=== PATIENT | female | born 1985 | race Caucasian/White ===

== ENCOUNTER 2016-11-18 10:16 | Emergency (ER) | payer BC ==
[2016-11-18 10:43] VITALS: BP 116/70
[2016-11-18] MEDS ORDERED: Benzonatate CAP* 100 MG PO ONE (12:02)
--- NOTE | 2016-11-18 12:04 | UC ---
Throat Pain/Nasal Carlos A HPI - HPI Summary HPI Summary: patient has had a cough, fever, chills and very sore throat for 3 days. - History of Current Complaint Chief Complaint: UCGeneralIllness Stated Complaint: COUGH,THROAT Time Seen by Provider: 11/18/16 11:55 Hx Obtained From: Patient Hx Last Menstrual Period: 10/29/16 ?: No Onset/Duration: Sudden Onset, Lasting Days Severity: Moderate Pain Intensity: 6 Pain Scale Used: 0-10 Numeric Cough: Nonproductive Associated Signs & Symptoms: Positive: Dysphagia, Hoarseness, Fever - Epiglottits Risk Factors Epiglottis Risk Factors: Negative - Allergies/Home Medications Allergies/Adverse Reactions: Allergies Allergy/AdvReac Type Severity Reaction Status Date / Time Codeine Allergy Severe Vomiting Verified 09/09/16 08:31 Hydrocodone [From Vicodin] Allergy Severe Vomiting Verified 09/09/16 08:31 Vancomycin Allergy Intermediate Rash Verified 09/09/16 08:31 Sulfamethoxazole Allergy Rash Verified 09/09/16 08:31 w/Trimethoprim [From Bactrim] PMH/Surg Hx/FS Hx/Imm Hx Previously Healthy: Yes Endocrine History Of: Denies: Diabetes Cardiovascular History Of: Denies: Cardiac Disorders Respiratory History Of: Reports: Asthma GI/ History Of: Denies: Ulcer Neurological History Of: Denies: CVA Cancer History Of: Denies: Colorectal Cancer - Surgical History Surgical History: Yes Surgery Procedure, Year, and Place: 7 knee surgery, 6 on right, 1 on left. C- section, 2011, [place]. Three Herniorrhaphies. Cholecystectomy, 2013, [place]. APPENDECTOMY AUG 2016, [facility] - Family History Known Family History: Negative: Hypertension - Social History Alcohol Use: Occasionally Substance Use Type: None Smoking Status (MU): Never Smoked Tobacco Review of Systems Constitutional: Fever, Chills Skin: Negative Eyes: Negative ENT: Negative Respiratory: Shortness Of Breath, Cough Cardiovascular: Negative Gastrointestinal: Negative Genitourinary: Negative Motor: Negative Neurovascular: Negative Musculoskeletal: Negative Neurological: Headache Psychological: Negative All Other Systems Reviewed And Are Negative: Yes Physical Exam Triage Information Reviewed: Yes Appearance: Well-Nourished, Ill-Appearing, Pain Distress Vital Signs: Initial Vital Signs Temp 99.8 F 11/18/16 10:37 Pulse 66 11/18/16 10:37 Resp 16 11/18/16 10:37 BP 116/70 11/18/16 10:37 Pulse Ox 100 11/18/16 10:37 Vital Signs Reviewed: Yes Eye Exam: Normal Eyes: Positive: Conjunctiva Clear ENT: Positive: Pharyngeal erythema, TM red, Tonsillar swelling Dental Exam: Normal Neck: Positive: Supple, Nontender, Enlarged Nodes @ - bilateral cervical Respiratory Exam: Normal Respiratory: Positive: Chest non-tender, Lungs clear, Normal breath sounds Cardiovascular Exam: Normal Cardiovascular: Positive: RRR, No Murmur, Brisk Capillary Refill Abdominal Exam: Normal Abdomen Description: Positive: Nontender, No Organomegaly, Soft Bowel Sounds: Positive: Present Musculoskeletal Exam: Normal Musculoskeletal: Positive: Strength Intact, ROM Intact, No Edema Neurological Exam: Normal Psychological Exam: Normal Skin Exam: Normal Throat Pain/Nasal Course/Dx - Course Course Of Treatment: history obtained, exam performed, medications give, Rapid strep obtained. - Differential Dx/Diagnosis Differential Diagnosis/HQI/PQRI: Influenza, Laryngitis, Pharyngitis, Sinusitis, Tonsillitis, URI Provider Diagnoses: pharyngitis. cough. fever Discharge - Discharge Plan Condition: Stable Disposition: HOME Prescriptions: Benzonatate CAP* [Tessalon CAP*] 100 mg PO TID PRN #21 cap PRN Reason: Cough guaiFENesin/CODIEN 100MG-10MG* [Robitussin AC 100Mg-10Mg*] 5 ml PO BEDTIME PRN # 50 ml MDD 5 ml PRN Reason: Cough predniSONE TAB* [Deltasone TAB*] 40 mg PO DAILY #10 tab Additional Instructions: Take the medications as prescribed. Increase your fluid intake and get plenty of rest., your strep test was negative today.
== END 2016-11-18 12:52 | disposition home or self-care (01) ==
LOC: UCCORT 10:16
DX: J02.9 Acute pharyngitis, unspecified (principal); R05 Cough; R50.9 Fever, unspecified; Z88.6 Allergy status to analgesic agent; Z88.1 Allergy status to other antibiotic agents; Z88.2 Allergy status to sulfonamides
CPT/HCPCS: 87651; 99212; A9270-GY; G0463

== ENCOUNTER 2016-11-21 09:29 | Emergency (ER) | payer BC ==
[2016-11-21 10:48] VITALS: BP 134/90
--- NOTE | 2016-11-21 11:22 | UC ---
Respiratory Complaint HPI - HPI Summary HPI Summary: complaint of cough and nasal congestion that started 6 days ago seen here 3 days ago started on tessalon and prednisone started having fever and chills 2 days ago - temp 101.8, took some tylenol with relief feels exhausted using albuterol inhaler approx 4-5 hours with some relief hasn't used albuterol today - History of Current Complaint Chief Complaint: UCRespiratory Stated Complaint: FEVER/COUGH/BREATHING COMPLAINT Time Seen by Provider: 11/21/16 11:11 Hx Obtained From: Patient Hx Last Menstrual Period: 10/28/16 - Allergies/Home Medications Allergies/Adverse Reactions: Allergies Allergy/AdvReac Type Severity Reaction Status Date / Time Vancomycin Allergy Intermediate Rash Verified 11/21/16 10:38 Sulfamethoxazole Allergy Rash Verified 11/21/16 10:38 w/Trimethoprim [From Bactrim] Home Medications: Home Medications Albuterol HFA INHALER* [Ventolin HFA Inhaler*] 2 puff INH Q4H PRN 11/21/16 [ History Confirmed 11/21/16] PMH/Surg Hx/FS Hx/Imm Hx Previously Healthy: No - asthma Endocrine History Of: Denies: Diabetes Cardiovascular History Of: Denies: Cardiac Disorders Respiratory History Of: Reports: Asthma GI/ History Of: Denies: Ulcer Neurological History Of: Denies: CVA Cancer History Of: Denies: Colorectal Cancer - Surgical History Surgical History: Yes Surgery Procedure, Year, and Place: 7 knee surgery, 6 on right, 1 on left. C- section, 2011, [place]. Three Herniorrhaphies. Cholecystectomy, 2013, [place]. APPENDECTOMY AUG 2016, [facility] - Family History Known Family History: Negative: Cardiac Disease, Hypertension, Diabetes - Social History Occupation: Employed Full-time Alcohol Use: Occasionally Substance Use Type: None Smoking Status (MU): Never Smoked Tobacco Review of Systems Constitutional: Fever Skin: Negative Eyes: Negative ENT: Negative Respiratory: Cough Cardiovascular: Negative Gastrointestinal: Negative Genitourinary: Negative Motor: Negative Neurovascular: Negative Musculoskeletal: Negative Neurological: Negative Psychological: Negative All Other Systems Reviewed And Are Negative: Yes Physical Exam Triage Information Reviewed: Yes Appearance: Well-Appearing, No Pain Distress, Well-Nourished Vital Signs: Initial Vital Signs Temp 98.6 F 11/21/16 10:39 Pulse 69 11/21/16 10:39 Resp 16 11/21/16 10:39 BP 134/90 11/21/16 10:39 Pulse Ox 99 11/21/16 10:39 Vital Signs Reviewed: Yes Eyes: Positive: Conjunctiva Clear ENT: Positive: Pharynx normal, Nasal congestion, TMs normal. Negative: TM bulging, TM red, Tonsillar swelling, Tonsillar exudate Neck: Positive: No Lymphadenopathy Respiratory: Positive: No respiratory distress, No accessory muscle use, Rhonchi - LLL, Wheezing Cardiovascular: Positive: RRR, No Murmur Abdomen Description: Positive: Nontender, Soft Bowel Sounds: Positive: Present Musculoskeletal: Positive: No Edema Neurological: Positive: Alert Psychological: Positive: Normal Response To Family Skin Exam: Normal UC Diagnostic Evaluation - Laboratory O2 Sat by Pulse Oximetry: 99 Re-Evaluation - Re-Evaluation First Eval Re-Evaluation Time: 11:54 Change: Improved - less wheezing Respiratory Course/Dx - Course Course Of Treatment: exam completed. will treat for secondary infection with antibiotic- continue prednisoen and tessalon - followup wioth PCP - Differential Dx/Diagnosis Differential Diagnosis/HQI/PQRI: Asthma, Lower Resp Infection Provider Diagnoses: asthma exacerbation Discharge - Discharge Plan Condition: Stable Disposition: HOME Prescriptions: Albuterol HFA INHALER* [Ventolin HFA Inhaler*] 2 puff INH Q4H PRN #1 mdi PRN Reason: Wheezing Azithromycin TAB* [Zithromax TAB (Z-MIGUEL ANGEL) 250 mg #6 tabs] 2 tab PO .TODAY, THEN 1 DAILY #1 miguel angel Spacer/Aerosol-Holding Chamber [Aerochamber Mv] 1 mis XX Q4HR #1 mis Patient Education Materials: Asthma (ED) Forms: *Work Release Referrals: Josey Huizar MD [Primary Care Provider] - Additional Instructions: Please take antibiotic as directed Use your albuterol inhaler every 4-6 hours when needed for wheezing, shortness of breath or uncontrolled coughing. Increase fluids and rest Take acetaminophen or ibuprofen for fever or pain Please review your discharge instructions. If your symptoms do not improve please call your primary care provider or return to urgent care.
[2016-11-21] MEDS ORDERED: Albuterol/Ipratropium NEB.SOL* Albuterol 2.5 MG/Ipratropium 0.5 MG 3 ML INH ONE (11:23)
== END 2016-11-21 12:01 | disposition home or self-care (01) ==
LOC: UCCORT 09:29
DX: J45.901 Unspecified asthma with (acute) exacerbation (principal); Z88.3 Allergy status to other anti-infective agents
CPT/HCPCS: 99212; A9270-GY; G0463

== ENCOUNTER 2017-01-20 09:09 | Emergency (ER) | payer BC ==
[2017-01-20 10:43] VITALS: BP 131/84
--- NOTE | 2017-01-20 11:21 | UC ---
Ear Complaint HPI - HPI Summary HPI Summary: right ear pain x 2 days. No fever. Slight sore throat the past few days, but none today. When ear pain started, ST went away. Daughter had strep in Dec, was on antibiotics x 20 days, finished 12/30/16. Dizzy. Nauseous. "off". LMP was 12/26/16, states she is not Pg. Hx C diff after gallbladder surgery. Had giardia at the same time. Was hospitalized with this, lost 30 lbs. - History of Current Complaint Chief Complaint: UCEar Stated Complaint: RIGHT EAR COMPLAINT Time Seen by Provider: 01/20/17 11:10 Hx Obtained From: Patient Hx Last Menstrual Period: 12/26/16 ?: No Onset/Duration: Gradual Onset, Lasting Days, Still Present Severity Initially: Moderate Severity Currently: Moderate Pain Intensity: 4 Pain Scale Used: 0-10 Numeric Aggravating Factors: Nothing Alleviating Factors: Nothing Associated Signs/Symptoms: Positive: URI Symptoms - ST - Allergies/Home Medications Allergies/Adverse Reactions: Allergies Allergy/AdvReac Type Severity Reaction Status Date / Time Vancomycin Allergy Intermediate Rash Verified 01/20/17 10:43 Sulfamethoxazole Allergy Rash Verified 01/20/17 10:43 w/Trimethoprim [From Bactrim] Home Medications: Home Medications Ibuprofen [Ibuprofen 200 MG] 400 mg PO PRN 01/20/17 [History] PMH/Surg Hx/FS Hx/Imm Hx Endocrine History Of: Denies: Diabetes Cardiovascular History Of: Denies: Cardiac Disorders Respiratory History Of: Reports: Asthma GI/ History Of: Denies: Ulcer Neurological History Of: Denies: CVA Cancer History Of: Denies: Colorectal Cancer - Surgical History Surgical History: Yes Surgery Procedure, Year, and Place: 7 knee surgery, 6 on right, 1 on left. C- section, 2011, [place]. Three Herniorrhaphies. Cholecystectomy, 2013, [place]. APPENDECTOMY AUG 2016, [facility] - Family History Known Family History: Negative: Cardiac Disease, Hypertension, Diabetes - Social History Occupation: Employed Full-time Lives: With Family Alcohol Use: Occasionally Substance Use Type: None Smoking Status (MU): Never Smoked Tobacco Review of Systems Constitutional: Negative Skin: Negative ENT: Sore Throat, Ear Ache Respiratory: Cough Cardiovascular: Negative Gastrointestinal: Other - nausea All Other Systems Reviewed And Are Negative: Yes Physical Exam Triage Information Reviewed: Yes Appearance: Well-Appearing, Well-Nourished, Pain Distress Vital Signs: Initial Vital Signs Temp 98.4 F 01/20/17 10:38 Pulse 60 01/20/17 10:38 Resp 14 01/20/17 10:38 BP 131/84 01/20/17 10:38 Pulse Ox 100 01/20/17 10:38 Vital Signs Reviewed: Yes Eyes: Positive: Conjunctiva Clear ENT: Positive: Hearing grossly normal, Pharyngeal erythema, Other: - TM retracted, and fluid level. Neck: Positive: Supple, Nontender, No Lymphadenopathy Respiratory: Positive: Lungs clear, Normal breath sounds, No respiratory distress Cardiovascular: Positive: RRR, No Murmur, Pulses Normal, Brisk Capillary Refill Musculoskeletal: Positive: Strength Intact, ROM Intact Neurological: Positive: Alert, Muscle Tone Normal Psychological Exam: Normal Skin Exam: Normal Ear Complaint Course/Dx - Course Course Of Treatment: rapid A neg - Differential Dx/Diagnosis Differential Diagnosis/HQI/PQRI: Otitis Media, Pharyngitis, URI Provider Diagnoses: right ear pain. serous otitis. pharyngitis. labyrinthitis Discharge - Discharge Plan Condition: Stable Disposition: HOME Prescriptions: Amoxicillin (*) [Amoxicillin 875 MG (*)] 875 mg PO BID #20 tab Meclizine HCl [Meclizine 25] 25 mg PO TID #20 tab Ondansetron ODT TAB* [Zofran 4 MG Odt TAB*] 4 mg PO Q6H PRN #12 tab.odt PRN Reason: Nausea Patient Education Materials: Serous Otitis Media (ED), Labyrinthitis (ED) Referrals: Josey Huizar MD [Primary Care Provider] - Additional Instructions: As discussed because of your history of C. Diff, try not to take the antibiotic. However if the pain becomes severe or worsening symptoms, you may take the antibiotic. Return to urgent care if any or worsening symptoms.
== END 2017-01-20 11:44 | disposition home or self-care (01) ==
LOC: UCCORT 09:09
DX: H92.01 Otalgia, right ear (principal); H65.90 Unspecified nonsuppurative otitis media, unspecified ear; J02.9 Acute pharyngitis, unspecified; H83.09 Labyrinthitis, unspecified ear; Z88.1 Allergy status to other antibiotic agents; Z88.2 Allergy status to sulfonamides; Z90.49 Acquired absence of other specified parts of digestive tract
CPT/HCPCS: 87651; 99212; G0463

== ENCOUNTER → 2017-12-07 17:36 | Emergency (ER) | payer BC | END | disposition left against medical advice (07) | LOC: UCCORT 17:36 | DX: M79.672 Pain in left foot (principal); Z53.21 Procedure and treatment not carried out due to patient leaving prior to being seen by health care provider ==

== ENCOUNTER 2017-12-08 07:05 | Emergency (ER) | payer BC ==
[2017-12-08 07:17] VITALS: BP 119/69
--- NOTE | 2017-12-08 07:30 | UC ---
Lower Extremity/Ankle HPI - HPI Summary HPI Summary: 3 DAYS OF PROGRESSIVELY WORSENING LEFT FOOT PAIN. NO RECENT DISCRETE INJURY SHE CAN IDENTIFY BUT HAS BEEN WORKING OUT MORE RECENTLY. REPORTS SHE INJURED HER FOOT IN THE SAME SPOT ABOUT 2 YEARS AGO BUT NEVER SOUGHT MEDICAL EVALUATION. HAS HAD INTERMITTENT PAIN SINCE THEN BUT NOW IS WORSE. - History of Current Complaint Chief Complaint: UCLowerExtremity Stated Complaint: lft foot pain Time Seen by Provider: 12/08/17 07:17 Hx Obtained From: Patient Hx Last Menstrual Period: 11/15/17 Onset/Duration: Gradual Onset, Lasting Days, Still Present Severity Initially: Moderate Severity Currently: Moderate Pain Intensity: 7 Pain Scale Used: 0-10 Numeric Aggravating Factor(s): Standing, Ambulation Alleviating Factor(s): Rest Able to Bear Weight: Yes - Allergies/Home Medications Allergies/Adverse Reactions: Allergies Allergy/AdvReac Type Severity Reaction Status Date / Time MS Vancomycin [Vancomycin] Allergy Intermediate Rash Verified 12/08/17 07:14 MS Sulfamethoxazole Allergy Rash Verified 12/08/17 07:14 w/Trimethoprim [From Bactrim] PMH/Surg Hx/FS Hx/Imm Hx Respiratory History: Asthma - Surgical History Surgical History: Yes Surgery Procedure, Year, and Place: 7 knee surgery, 6 on right, 1 on left. C- section, 2011, [place]. Three Herniorrhaphies. Cholecystectomy, 2013, [place]. APPENDECTOMY AUG 2016, [facility] - Family History Known Family History: Positive: Hypertension Negative: Cardiac Disease, Diabetes - Social History Alcohol Use: Occasionally Substance Use Type: None Smoking Status (MU): Never Smoked Tobacco Review of Systems Constitutional: Negative Skin: Negative Respiratory: Negative Cardiovascular: Negative Gastrointestinal: Negative Musculoskeletal: Arthralgia, Edema All Other Systems Reviewed And Are Negative: Yes Physical Exam Triage Information Reviewed: Yes Appearance: Well-Appearing, No Pain Distress, Well-Nourished Vital Signs: Initial Vital Signs Temp 98.7 F 12/08/17 07:12 Pulse 61 12/08/17 07:12 Resp 16 12/08/17 07:12 BP 119/69 12/08/17 07:12 Pulse Ox 100 12/08/17 07:12 Vital Signs Reviewed: Yes Eyes: Positive: Conjunctiva Clear ENT: Positive: Hearing grossly normal Neck: Positive: Supple Respiratory: Positive: No respiratory distress, No accessory muscle use Cardiovascular: Positive: Pulses Normal Abdomen Description: Positive: Soft Musculoskeletal: Positive: ROM Intact, Edema @ - SLIGHTLY SWOLLEN LEFT LATERAL FOOT Neurological: Positive: Alert Psychological: Positive: Age Appropriate Behavior Skin: Negative: rashes Diagnostics - Radiology LEFT FOOT XRAY Xray Interpretation: No Acute Changes Radiology Interpretation Completed By: Radiologist Lower Extremity Course/Dx - Course Course Of Treatment: XRAY UNREMARKABLE. PT DECLINES MAKAYLA/CRUTCHES. ADVISED TO REST AND KEEP FOOT ELEVATED WHEN SEATED. F/U PCP OR ORTHO IF SX PERSIST. - Differential Dx/Diagnosis Provider Diagnoses: LEFT FOOT SPRAIN Discharge - Discharge Plan Condition: Stable Disposition: HOME Patient Education Materials: Foot Sprain (ED) Referrals: Catrachito Vigil MD [Medical Doctor] - If Needed Josey Huizar MD [Primary Care Provider] - If Needed Additional Instructions: XRAY TODAY UNREMARKABLE. REST, ICE, ELEVATE. OTC MEDS NEEDED FOR DISCOMFORT. SEEK FOLLOW-UP IF YOU ARE NOT IMPROVING OVER THE NEXT FEW WEEKS.
--- NOTE | 2017-12-08 08:30 | RAD ---
INDICATION: Fifth metatarsal pain left foot COMPARISON: None TECHNIQUE: AP, lateral, and oblique views were obtained. FINDINGS: The bony structures, joint spaces, and soft tissues are normal for age. IMPRESSION: NEGATIVE EXAMINATION.
== END 2017-12-08 08:41 | disposition home or self-care (01) ==
LOC: UCCORT 07:05
DX: S93.602A Unspecified sprain of left foot, initial encounter (principal); X58.XXXA Exposure to other specified factors, initial encounter; Y93.9 Activity, unspecified; Y92.9 Unspecified place or not applicable; J45.909 Unspecified asthma, uncomplicated; Z88.1 Allergy status to other antibiotic agents; Z88.2 Allergy status to sulfonamides; Z90.49 Acquired absence of other specified parts of digestive tract
CPT/HCPCS: 99211; G0463

== ENCOUNTER 2018-04-02 09:46 | Emergency (ER) | payer BC ==
[2018-04-02 10:14] VITALS: BP 129/84
--- NOTE | 2018-04-02 10:49 | UC ---
Throat Pain/Nasal Carlos A HPI - HPI Summary HPI Summary: sudden onset sinus congestion, upper dental pain and pressure, nasal congestion and headaches - History of Current Complaint Chief Complaint: UCRespiratory Stated Complaint: CONGESTION Time Seen by Provider: 04/02/18 10:35 Hx Obtained From: Patient Hx Last Menstrual Period: 03/25/18 ?: No Onset/Duration: Sudden Onset, Lasting Days - 2, Still Present Pain Intensity: 3 Pain Scale Used: 0-10 Numeric Cough: None Associated Signs & Symptoms: Positive: Sinus Discomfort, Nasal Discharge, Fever - Allergies/Home Medications Allergies/Adverse Reactions: Allergies Allergy/AdvReac Type Severity Reaction Status Date / Time vancomycin Allergy Intermediate Rash Verified 04/02/18 10:07 Sulfa (Sulfonamide Allergy Unknown Rash Verified 04/02/18 10:07 Antibiotics) Home Medications: Home Medications Meloxicam [Mobic] 15 mg PO DAILY 04/02/18 [History Confirmed 04/02/18] PMH/Surg Hx/FS Hx/Imm Hx Previously Healthy: No - rhum.arthritis - Surgical History Surgical History: Yes Surgery Procedure, Year, and Place: 7 knee surgery, 6 on right, 1 on left. C- section, 2011, [place]. Three Herniorrhaphies. Cholecystectomy, 2013, [place]. APPENDECTOMY AUG 2016, [facility]. RIGHT SHOULDER RECONSTRUCTION MAY 2017 - Family History Known Family History: Positive: Hypertension Negative: Cardiac Disease, Diabetes - Social History Alcohol Use: Occasionally Substance Use Type: None Smoking Status (MU): Never Smoked Tobacco Review of Systems Constitutional: Fever Skin: Negative Eyes: Negative ENT: Negative, Sore Throat, Ear Ache, Nasal Discharge Respiratory: Negative Cardiovascular: Negative Gastrointestinal: Negative Genitourinary: Negative Motor: Negative Neurovascular: Negative Musculoskeletal: Negative Neurological: Negative Psychological: Negative Is Patient Immunocompromised?: No All Other Systems Reviewed And Are Negative: Yes Physical Exam Triage Information Reviewed: Yes Appearance: Well-Appearing, No Pain Distress, Well-Nourished Vital Signs: Initial Vital Signs Temp 99.6 F 04/02/18 10:08 Pulse 71 04/02/18 10:08 Resp 16 04/02/18 10:08 BP 129/84 04/02/18 10:08 Pulse Ox 98 04/02/18 10:08 Vital Signs Reviewed: Yes Eye Exam: Normal Eyes: Positive: Conjunctiva Clear ENT Exam: Normal ENT: Positive: Normal ENT inspection, Hearing grossly normal, Pharynx normal, Nasal congestion, Nasal drainage, TMs normal, Dental tenderness, Sinus tenderness, Uvula midline. Negative: Tonsillar swelling, Tonsillar exudate, Trismus, Muffled voice, Hoarse voice Dental Exam: Normal Neck exam: Normal Neck: Positive: Supple, Nontender, No Lymphadenopathy Respiratory Exam: Normal Respiratory: Positive: Chest non-tender, Lungs clear, Normal breath sounds, No respiratory distress, No accessory muscle use Cardiovascular Exam: Normal Cardiovascular: Positive: RRR, No Murmur, Pulses Normal, Brisk Capillary Refill Musculoskeletal Exam: Normal Musculoskeletal: Positive: Strength Intact, ROM Intact, No Edema Neurological Exam: Normal Neurological: Positive: Alert, Muscle Tone Normal Psychological Exam: Normal Skin Exam: Normal Throat Pain/Nasal Course/Dx - Course Assessment/Plan: mucinex D, Flonase, nasal rinses, if worsens or fails to improve please start antibiodics - Differential Dx/Diagnosis Provider Diagnoses: Acute rhinosinusitis Discharge - Sign-Out/Discharge Documenting (check all that apply): Discharge/Admit/Transfer - Discharge Plan Condition: Stable Disposition: HOME Prescriptions: Amoxicillin/Clavulanate TAB* [Augmentin TAB 875*] 875 mg PO BID #20 tab Fluticasone NASAL SPRAY 50MCG* [Flonase NASAL SPRAY 50MCG*] 2 spray BOTH NARES DAILY #1 btl Guaifenesin/Pseudo 600/60(NF) [Mucinex D 600/60 (NF)] 1 tab PO BID #20 tab Patient Education Materials: Probiotic (By mouth), Sodium Chloride (Into the nose), Sinusitis (ED), Nasal Rinse (ED) Referrals: Josey Huizar MD [Primary Care Provider] - If Needed - Billing Disposition and Condition Condition: STABLE Disposition: HOME
== END 2018-04-02 10:59 | disposition home or self-care (01) ==
LOC: UCCORT 09:46
DX: J01.90 Acute sinusitis, unspecified (principal); Z88.1 Allergy status to other antibiotic agents; Z88.2 Allergy status to sulfonamides
CPT/HCPCS: 99212; G0463

== ENCOUNTER 2018-07-14 15:42 | Emergency (ER) | payer BC ==
[2018-07-14 16:30] VITALS: BP 140/77
--- NOTE | 2018-07-14 17:02 | UC ---
Headache HPI - HPI Summary HPI Summary: C/O headache awoke at 5 AM. Had 4 lumbar epidural steroids. Pounding with nausea and photophobia. Not usual migraine headache. FEVER - History Of Current Complaint Chief Complaint: UCHeadache Stated Complaint: FEVER, HEADACHE Time Seen by Provider: 07/14/18 16:55 Hx Obtained From: Patient Hx Last Menstrual Period: 06/21/18 ?: No Onset/Duration: Sudden Onset - 5 AM Onset Of Symptoms: Sudden Initially Headache Was: Moderate Currently Pain Is: Moderate Pain Intensity: 6 Character: Throbbing Aggravating Factor(s): Bright Lights Allevating Factor(s): Nothing Associated Signs And Symptoms: Positive: Nausea. Negative: Neck Stiffness Related History: Recent Trauma: - Epidural steroid injections. - Risk Factors SAH Risk Factors: Negative - Allergies/Home Medications Allergies/Adverse Reactions: Allergies Allergy/AdvReac Type Severity Reaction Status Date / Time vancomycin Allergy Intermediate Rash Verified 07/14/18 16:31 Sulfa (Sulfonamide Allergy Unknown Rash Verified 07/14/18 16:31 Antibiotics) Home Medications: Home Medications Acetaminophen 975 mg PO Q4HR PRN 07/14/18 [History Confirmed 07/14/18] PMH/Surg Hx/FS Hx/Imm Hx - Additional Past Medical History Additional PMH: Rheumatoid arthritis Respiratory History: Asthma - Surgical History Surgical History: Yes Surgery Procedure, Year, and Place: 7 knee surgery, 6 on right, 1 on left. C- section, 2011, [place]. Three Herniorrhaphies; lumbar disc herniations. Cholecystectomy, 2013, [place]. APPENDECTOMY AUG 2016, [facility]. RIGHT SHOULDER RECONSTRUCTION MAY 2017 - Family History Known Family History: Positive: Hypertension Negative: Cardiac Disease, Diabetes - Social History Occupation: Employed Full-time Lives: With Family Alcohol Use: Occasionally Substance Use Type: None Smoking Status (MU): Never Smoked Tobacco Have You Smoked in the Last Year: No Review of Systems Constitutional: Fever Neurological: Headache Is Patient Immunocompromised?: No All Other Systems Reviewed And Are Negative: Yes Physical Exam Triage Information Reviewed: Yes Appearance: Well-Nourished, Pain Distress Vital Signs: Initial Vital Signs Temp 99.6 F 07/14/18 16:23 Pulse 73 07/14/18 16:23 Resp 16 07/14/18 16:23 BP 140/77 07/14/18 16:23 Pulse Ox 100 07/14/18 16:23 Vital Signs Reviewed: Yes Eyes: Positive: Conjunctiva Clear, Other: - disc margins sharp. Fundi benign. ENT: Positive: Nasal congestion - mild allergic congestion., TMs normal Neck: Positive: Supple, No Lymphadenopathy. Negative: Nuchal Rigidity Respiratory: Positive: Lungs clear Cardiovascular: Positive: RRR, No Murmur Musculoskeletal: Positive: ROM Limited @ - lumbar spine., Other: - Tender over the lumbar spine. Neurological Exam: Normal - no focal deficits Psychological Exam: Normal Skin Exam: Normal Headache Course/Dx - Course Course Of Treatment: Discussed patient with [place] ED provider. Ok to go by private car with stable symptoms and VS. - Differential Dx/Diagnosis Differential Diagnosis/HQI/PQRI: Epidural Hematoma, Meningitis, Subarachnoid Hemorrhage Provider Diagnoses: Acute headache. Fever - Physician Notifications Discussed Patient Care With: Dr. Rangel - [facility] ED Time Discussed With Above Provider: 17:20 Discharge - Sign-Out/Discharge Documenting (check all that apply): Patient Departure All imaging exams completed and their final reports reviewed: No Studies - Discharge Plan Condition: Guarded Disposition: TRANS HIGHER LVL OF CARE FAC Patient Education Materials: Acute Headache (ED) Referrals: Josey Huizar MD [Primary Care Provider] - Additional Instructions: GO STRAIGHT TO THE [place] [facility]. - Billing Disposition and Condition Condition: GUARDED Disposition: Trans Higher Lvl of Care Fac
== END 2018-07-14 17:30 | disposition short-term general hospital (02) ==
LOC: UCCORT 15:42
DX: R51 Headache (principal); R50.9 Fever, unspecified; Z88.1 Allergy status to other antibiotic agents; Z88.2 Allergy status to sulfonamides
CPT/HCPCS: 99212; G0463

== ENCOUNTER 2019-01-21 19:30 | Emergency (ER) | payer BC ==
[2019-01-21 19:41] VITALS: BP 130/92
--- NOTE | 2019-01-21 19:48 | UC ---
Throat Pain/Nasal Carlos A HPI - HPI Summary HPI Summary: Sore throat and low-grade fever since yesterday. Mild nausea. Patient states her daughter is just getting over strep throat. - History of Current Complaint Chief Complaint: UCGeneralIllness Stated Complaint: ST,COUGH Time Seen by Provider: 01/21/19 19:33 Hx Obtained From: Patient Hx Last Menstrual Period: 11/28/18 ?: No Onset/Duration: Gradual Onset Severity: Mild Pain Intensity: 7 Cough: Nonproductive Associated Signs & Symptoms: Positive: Fever - Grade fever since yesterday - Epiglottits Risk Factors Epiglottis Risk Factors: Negative - Allergies/Home Medications Allergies/Adverse Reactions: Allergies Allergy/AdvReac Type Severity Reaction Status Date / Time vancomycin Allergy Intermediate Rash Verified 12/03/18 07:30 Sulfa (Sulfonamide Allergy Unknown Rash Verified 12/03/18 07:30 Antibiotics) Home Medications: Home Medications NK [No Home Medications Reported] 01/21/19 [History Confirmed 01/21/19] PMH/Surg Hx/FS Hx/Imm Hx Previously Healthy: Yes - Surgical History Surgical History: Yes Surgery Procedure, Year, and Place: 7 knee surgery, 6 on right, 1 on left. C- section, 2011, [place]. Three Herniorrhaphies; lumbar disc herniations. Cholecystectomy, 2013, [place]. APPENDECTOMY AUG 2016, [facility]. RIGHT SHOULDER RECONSTRUCTION MAY 2017 - Family History Known Family History: Positive: Hypertension Negative: Cardiac Disease, Diabetes - Social History Alcohol Use: Occasionally Substance Use Type: Marijuana Substance Use Comment - Amount & Last Used: [facility] [place] PRN FOR RA Smoking Status (MU): Never Smoked Tobacco Have You Smoked in the Last Year: No Review of Systems All Other Systems Reviewed And Are Negative: Yes Constitutional: Positive: Fever - Grade fever since yesterday Skin: Positive: Negative Eyes: Positive: Negative ENT: Positive: Sore Throat Respiratory: Positive: Negative Cardiovascular: Positive: Negative Gastrointestinal: Positive: Negative Genitourinary: Positive: Negative Motor: Positive: Negative Neurovascular: Positive: Negative Musculoskeletal: Positive: Negative Neurological: Positive: Negative Psychological: Positive: Negative Is Patient Immunocompromised?: No Physical Exam Triage Information Reviewed: Yes Appearance: Well-Appearing, No Pain Distress, Well-Nourished Vital Signs: Initial Vital Signs Temp 98.7 F 01/21/19 19:38 Pulse 74 01/21/19 19:38 Resp 16 01/21/19 19:38 BP 130/92 01/21/19 19:38 Pulse Ox 99 01/21/19 19:38 Vital Signs Reviewed: Yes Eye Exam: Normal ENT: Positive: Hearing grossly normal, Pharyngeal erythema, TMs normal, Tonsillar swelling, Tonsillar exudate, Uvula midline. Negative: Trismus, Muffled voice, Hoarse voice Neck exam: Normal Neck: Positive: Supple, Nontender, No Lymphadenopathy Respiratory Exam: Normal Respiratory: Positive: Lungs clear, Normal breath sounds, No respiratory distress, No accessory muscle use Cardiovascular Exam: Normal Cardiovascular: Positive: RRR, No Murmur, Pulses Normal, Brisk Capillary Refill Abdominal Exam: Normal Abdomen Description: Positive: Nontender, No Organomegaly, Soft Bowel Sounds: Positive: Present Musculoskeletal Exam: Normal Neurological Exam: Normal Psychological Exam: Normal Skin Exam: Normal Throat Pain/Nasal Course/Dx - Course Course Of Treatment: Comfortable here. Rapid strep test was negative. - Differential Dx/Diagnosis Differential Diagnosis/HQI/PQRI: Pharyngitis Provider Diagnosis: Pharyngitis Discharge - Sign-Out/Discharge Documenting (check all that apply): Patient Departure All imaging exams completed and their final reports reviewed: No Studies - Discharge Plan Condition: Fair Disposition: HOME Patient Education Materials: Pharyngitis (ED) Referrals: Josey Huizar MD [Primary Care Provider] - Additional Instructions: Saltwater gargles, throat messages, may alternate Tylenol every 4 hours with Motrin every 8 hours. Follow-up with your primary care provider or Monday if no improvement. - Billing Disposition and Condition Condition: FAIR Disposition: Home - Attestation Statements Provider Attestation: Per institutional requirements, I have reviewed the chart, however, I was not consulted specifically or made aware of this patient by the midlevel provider. I did not personally evaluate, interact with , or disposition this patient.
== END 2019-01-21 20:13 | disposition home or self-care (01) ==
LOC: UCCORT 19:30
DX: J02.9 Acute pharyngitis, unspecified (principal); Z88.1 Allergy status to other antibiotic agents; Z88.2 Allergy status to sulfonamides
CPT/HCPCS: 87651; 99211; G0463

== ENCOUNTER 2019-07-31 10:21 | Emergency (ER) | payer BC ==
[2019-07-31 11:03] VITALS: BP 145/97
--- NOTE | 2019-07-31 11:41 | ED ---
Throat Pain/Nasal Congestion - HPI Summary HPI Summary: 33 yr old female with the complaint of sinus pressure, post nasal drip, green sputum and nasal drainage. Onset of symptoms four days ago. She states she has a history of sinus infections and feels she has one now. she has no other complaints. - History of Current Complaint Chief Complaint: UCGeneralIllness Time Seen by Provider: 07/31/19 11:13 - Allergies/Home Medications Allergies/Adverse Reactions: Allergies Allergy/AdvReac Type Severity Reaction Status Date / Time vancomycin Allergy Intermediate Rash Verified 07/31/19 10:58 Sulfa (Sulfonamide Allergy Unknown Rash Verified 07/31/19 10:58 Antibiotics) Home Medications: Home Medications Control Pill 1 tab PO DAILY 07/31/19 [History Confirmed 07/31/19] D-Methorphan/PE/Acetaminophen [Theraflu Expressmax Sever 20-10-650 mg/30Ml] 1 liq PO ONCE 07/31/19 [History Confirmed 07/31/19] PMH/Surg Hx/FS Hx/Imm Hx Endocrine/Hematology History: Denies: Hx Diabetes Respiratory History: Reports: Hx Asthma GI History: Denies: Hx Ulcer - Surgical History Surgery Procedure, Year, and Place: 7 knee surgery, 6 on right, 1 on left. C- section, 2011, [place]. Three Herniorrhaphies; lumbar disc herniations. Cholecystectomy, 2013, [place]. APPENDECTOMY AUG 2016, [facility]. RIGHT SHOULDER RECONSTRUCTION MAY 2017 Infectious Disease History: No Infectious Disease History: Reports: Hx Clostridium Difficile, History Other Infectious Disease - Giardia 07/2014 Denies: Traveled Outside the [place] in Last 30 Days - Family History Known Family History: Positive: Hypertension Negative: Cardiac Disease, Diabetes - Social History Alcohol Use: Occasionally Substance Use Type: Reports: Marijuana Substance Use Comment - Amount & Last Used: [facility] [place] PRN FOR RA Smoking Status (MU): Never Smoked Tobacco Have You Smoked in the Last Year: No Review of Systems Constitutional: Negative Positive: Nasal Discharge, Other - sinus pain All Other Systems Reviewed And Are Negative: Yes Physical Exam Triage Information Reviewed: Yes Vital Signs On Initial Exam: Initial Vitals Temp Pulse Resp BP Pulse Ox 98.3 F 66 17 145/97 100 07/31/19 10:59 07/31/19 10:59 07/31/19 10:59 07/31/19 10:59 07/31/19 10:59 Vital Signs Reviewed: Yes Appearance: Positive: Well-Appearing, No Pain Distress Skin: Positive: Warm, Skin Color Reflects Adequate Perfusion Head/Face: Positive: Normal Head/Face Inspection Eyes: Positive: EOMI ENT: Positive: Normal ENT inspection, Nasal congestion, Nasal drainage, Sinus tenderness Neck: Positive: Nontender Respiratory/Lung Sounds: Positive: Clear to Auscultation, Breath Sounds Present Cardiovascular: Positive: RRR. Negative: Murmur Abdomen Description: Negative: Distended Musculoskeletal: Positive: Strength/ROM Intact Neurological: Positive: Sensory/Motor Intact, Alert, Oriented to Person Place, Time, CN Intact II-III, Normal Gait, Speech Normal Psychiatric: Positive: Normal - Pratibha Coma Scale Best Eye Response: 4 - Spontaneous Best Motor Response: 6 - Obeys Commands Best Verbal Response: 5 - Oriented Coma Scale Total: 15 Diagnostics - Vital Signs Vital Signs Temp Pulse Resp BP Pulse Ox 07/31/19 10:59 98.3 F 66 17 145/97 100 - Laboratory Lab Statement: Any lab studies that have been ordered have been reviewed, and results considered in the medical decision making process. EENT Course/Dx - Course Course Of Treatment: 33 yr old with sinusitis, augmentin - Diagnoses Provider Diagnoses: Acute bacterial sinusitis Discharge ED - Sign-Out/Discharge Documenting (check all that apply): Patient Departure All imaging exams completed and their final reports reviewed: No Studies - Discharge Plan Condition: Good Disposition: HOME Prescriptions: Amoxicillin/Clavulanate TAB* [Augmentin TAB 875*] 875 mg PO BID #20 tab Patient Education Materials: Sinusitis (ED), Hypertension (ED) Referrals: Josey Huizar MD [Primary Care Provider] - 2 Days - Billing Disposition and Condition Condition: GOOD Disposition: Home
== END 2019-07-31 11:45 | disposition home or self-care (01) ==
LOC: UCCORT 10:21
DX: J01.90 Acute sinusitis, unspecified (principal); B96.89 Other specified bacterial agents as the cause of diseases classified elsewhere; Z88.1 Allergy status to other antibiotic agents; Z88.2 Allergy status to sulfonamides
CPT/HCPCS: 99212; G0463

== ENCOUNTER 2019-08-14 16:03 | Emergency (ER) | payer BC ==
--- NOTE | 2019-08-14 16:30 | UC ---
Complaint Female HPI - HPI Summary HPI Summary: 33-year-old female who has burning on urination and frequency. She just finished antibiotics 5 days ago for sinus infection and also developed yeastlike symptoms. - History Of Current Complaint Stated Complaint: URINARY Time Seen by Provider: 08/14/19 16:29 Hx Obtained From: Patient Hx Last Menstrual Period: 06/2019 ?: No Onset/Duration: Gradual Onset Timing: Intermittent Severity Initially: Mild Severity Currently: Mild Character: Burning Aggravating Factor(s): Urination Alleviating Factor(s): Nothing Associated Signs And Symptoms: Positive: Back Pain - Mild left-sided back pain. , Nausea - Occasional nausea. - Allergies/Home Medications Allergies/Adverse Reactions: Allergies Allergy/AdvReac Type Severity Reaction Status Date / Time vancomycin Allergy Intermediate Swelling Verified 08/14/19 16:27 Of Face,Lips,& Throat Sulfa (Sulfonamide Allergy Unknown Swelling Verified 08/14/19 16:27 Antibiotics) Of Face,Lips,& Throat Home Medications: Home Medications Bcp 1 tab DAILY 08/14/19 [History] PMH/Surg Hx/FS Hx/Imm Hx Previously Healthy: Yes - Surgical History Surgical History: Yes Surgery Procedure, Year, and Place: 7 knee surgery, 6 on right, 1 on left. C- section, 2011, [place]. Three Herniorrhaphies; lumbar disc herniations. Cholecystectomy, 2013, [place]. APPENDECTOMY AUG 2016, [facility]. RIGHT SHOULDER RECONSTRUCTION MAY 2017 - Family History Known Family History: Positive: Hypertension Negative: Cardiac Disease, Diabetes - Social History Alcohol Use: Occasionally Substance Use Type: Marijuana Substance Use Comment - Amount & Last Used: [facility] [place] PRN FOR RA Smoking Status (MU): Never Smoked Tobacco Have You Smoked in the Last Year: No Review of Systems All Other Systems Reviewed And Are Negative: Yes Genitourinary: Positive: Dysuria, Frequency, Urgency, Vaginal/Penile Itching, Vaginal/Penile Discharge - Whitish yeastlike vaginal discharge. Is Patient Immunocompromised?: No Physical Exam Triage Information Reviewed: Yes Appearance: Well-Appearing, No Pain Distress, Well-Nourished Vital Signs Reviewed: Yes Eyes: Positive: Conjunctiva Clear Respiratory: Positive: Lungs clear, Normal breath sounds, No respiratory distress, No accessory muscle use Cardiovascular: Positive: RRR, No Murmur, Pulses Normal, Brisk Capillary Refill Abdomen Description: Positive: Nontender, No Organomegaly, Soft, CVA Tenderness (L) - Very minimal left-sided CVA tenderness.. Negative: CVA Tenderness (R), Distended, Guarding, Hepatomegaly, McBurney's Point Tenderness, Splenomegaly Bowel Sounds: Positive: Present Musculoskeletal Exam: Normal Neurological Exam: Normal Psychological Exam: Normal Skin Exam: Normal Complaint Female Dx - Course Course Of Treatment: The urinalysis showed a urinary tract infection. I am going to treat the patient with cephalexin 500 mg by mouth 3 times a day 7 days. I'm also going to give her Diflucan 150 mg to take today and then repeat in 1 week if no improvement in symptoms. She's follow-up with her primary care provider as needed if no improvement. She's to go to the emergency room for any fever, chills, vomiting and unable keep medicine down. - Differential Dx/Diagnosis Provider Diagnosis: UTI (urinary tract infection), Yeast infection Discharge ED - Sign-Out/Discharge Documenting (check all that apply): Patient Departure All imaging exams completed and their final reports reviewed: No Studies - Discharge Plan Condition: Good Disposition: HOME Prescriptions: Cephalexin CAP* [Keflex 500 CAP*] 500 mg PO TID 7 Days #21 cap Fluconazole 150 MG TAB* [Diflucan 150 MG TAB*] 150 mg PO UC ONCE 1 Days #1 tablet Patient Education Materials: Urinary Tract Infection in Women (DC) Referrals: Josey Huizar MD [Primary Care Provider] - Additional Instructions: Increase fluids, may repeat the Diflucan in 1 week if continued symptoms. Go to the emergency room if you develop fever, chills, vomiting and unable keep the medication down. Follow-up with your primary care provider in for 5 days if no improvement. - Billing Disposition and Condition Condition: GOOD Disposition: Home - Attestation Statements Provider Attestation: Per institutional requirements, I have reviewed the chart, however, I was not consulted specifically or made aware of this patient by the midlevel provider. I did not personally evaluate, interact with , or disposition this patient.
[2019-08-14 16:31] VITALS: BP 139/87
--- NOTE | 2019-08-17 07:32 | UC ---
- Progress Note Progress Note: + E coli on cephalexin await sensitivity no change Course/Dx - Diagnoses Provider Diagnoses: UTI (urinary tract infection), Yeast infection Discharge ED - Sign-Out/Discharge Documenting (check all that apply): Post-Discharge Follow Up All imaging exams completed and their final reports reviewed: No Studies - Discharge Plan Condition: Good Disposition: HOME Prescriptions: Cephalexin CAP* [Keflex 500 CAP*] 500 mg PO TID 7 Days #21 cap Fluconazole 150 MG TAB* [Diflucan 150 MG TAB*] 150 mg PO UC ONCE 1 Days #1 tablet Patient Education Materials: Urinary Tract Infection in Women (DC) Referrals: Josey Huizar MD [Primary Care Provider] - Additional Instructions: Increase fluids, may repeat the Diflucan in 1 week if continued symptoms. Go to the emergency room if you develop fever, chills, vomiting and unable keep the medication down. Follow-up with your primary care provider in for 5 days if no improvement. - Billing Disposition and Condition Condition: GOOD Disposition: Home
== END 2019-08-14 16:58 | disposition home or self-care (01) ==
LOC: UCCORT 16:03
DX: B37.49 Other urogenital candidiasis (principal); Z88.1 Allergy status to other antibiotic agents; Z88.2 Allergy status to sulfonamides
CPT/HCPCS: 81003; 84702; 87077; 87086; 87186; 99212; G0463